=== PATIENT | female | born 1970 | race Caucasian/White ===

== ENCOUNTER 2018-01-22 18:38 | Emergency (ER) | payer SELFPAY ==
[2018-01-22 18:41] VITALS: BP 134/92; PULSE 84; RESP 17; TEMP 36.3; O2SAT 97; BMI 36.8
--- NOTE | 2018-01-22 19:19 | ED.VISSUMM ---
- ER Visit Summary Date of Service: 01/22/18 Chief Complaint: [Medication refill] History of Present Illness: The patient is a 47 F [presents to the emergency department requesting a refill on her blood pressure medication. Patient states that she ran out 2 days ago. Patient states that she normally goes to the [facility] clinic who normally calls her prescriptions in. Patient apparently has the follow-up third week of February with a new nurse practitioner there and they will not fill her prescriptions until she has had a actual visit with the new nurse practitioner. Patient went to the urgent care to get prescriptions filled however they would not fill them for her and she was referred to the emergency department. Patient otherwise has no complaints.] Physical Examination: [HEENT-PERRLA, EOMI. Cranial nerves II through XII grossly intact. TMs clear. Mucous membranes moist. No adenopathy. Cardiovascular-regular rate and rhythm without murmur or ectopy Lungs-clear to auscultation, chest wall stable without crepitus or subcu emphysema Abdomen-normoactive bowel sounds, soft, nontender, no rebound or rigidity, no peritoneal signs. Extremities-intact ?4, normal range of motion, normal pulses, atraumatic] Test Results: [None indicated] Emergency Department Course and Treatment: [None] Treatment Plan: [Patient will be given a prescription for chlorthalidone 25 mg daily and metoprolol 25 mg twice a day] Disposition: [Discharged home in stable condition] Impression: [Medication refill] This note was generated with [employer] dictation software. It may contain incorrect words, spelling, and punctuation that were not noted in review of the chart prior to signing ED Disposition - Plan for ED Patient: Chief Complaint: Med Refill Referrals: Gris Carl [Primary Care Provider] -
--- NOTE | 2018-01-22 19:21 | ED.DEP ---
ED Disposition - Plan for ED Patient: Chief Complaint: Med Refill Instructions: Med Refill Prescriptions: Chlorthalidone 25 mg PO DAILY #30 tab Metoprolol Tartrate 25 mg PO BID #60 tab Referrals: Gris Carl [Primary Care Provider] - Keep Niya appointment
[2018-01-22 19:29] VITALS: BP 127/87; PULSE 75; RESP 18
== END 2018-01-22 19:30 | disposition home or self-care (01) ==
PROVIDERS: Emergency Provider Emergency Medicine
DX: I10 Essential (primary) hypertension (principal); Z76.0 Encounter for issue of repeat prescription
CPT/HCPCS: 99282

== ENCOUNTER 2018-02-02 09:45 | Emergency (ER) | payer SELFPAY ==
[2018-02-02 09:46] VITALS: BP 152/94; PULSE 74; RESP 15; TEMP 36.4; O2SAT 97; BMI 36.6
--- NOTE | 2018-02-02 10:22 | ED.VISSUMM ---
- ER Visit Summary Date of Service: 02/02/18 Chief Complaint: Right toe injury History of Present Illness: The patient is a 47 F who stepped on a rounded portion of a baby carrier this morning and suffered a laceration to the bottom of her fourth toe. Tetanus shot is up-to-date. Patient has no paresthesias and is able to ambulate. Physical Examination: Vital signs are remarkable for blood pressure 152/94, otherwise unremarkable. Physical exam is significant for right lower extremity examination which reveals a one half center laceration to the base of the right fourth toe the plantar surface. Laceration is fairly deep. She has normal range of motion and cap refill distally. She has normal sensation. Test Results: [] Emergency Department Course and Treatment: Wound is anesthetized with 2 cc 1% lidocaine locally. Wound is irrigated and skin is closed with 2 4-0 Vicryl simple interrupted sutures. Dressing is applied. Treatment Plan: [] Disposition: Discharge Impression: Right fourth toe laceration status post suture This note was generated with [employer] dictation software. It may contain incorrect words, spelling, and punctuation that were not noted in review of the chart prior to signing ED Disposition - Plan for ED Patient: Chief Complaint: Laceration Referrals: Gris Carl [Primary Care Provider] -
--- NOTE | 2018-02-02 10:23 | ED.DEP ---
ED Disposition - Plan for ED Patient: Disposition: Home or Assisted Living Chief Complaint: Laceration Instructions: ED Laceration Foot Referrals: Gris Carl [Primary Care Provider] - As Needed
--- NOTE | 2018-02-02 10:29 | ED.RN ---
Physician disposed of lidocaine before rn could scan.
== END 2018-02-02 10:32 | disposition home or self-care (01) ==
PROVIDERS: Emergency Provider Emergency Medicine
DX: S91.114A Laceration without foreign body of right lesser toe(s) without damage to nail, initial encounter (principal); W45.8XXA Other foreign body or object entering through skin, initial encounter; Y93.9 Activity, unspecified; Y92.9 Unspecified place or not applicable; I11.0 Hypertensive heart disease with heart failure; I50.9 Heart failure, unspecified; Z79.899 Other long term (current) drug therapy
CPT/HCPCS: 12001; 99284

== ENCOUNTER 2018-05-14 18:12 | Emergency (ER) | payer SELFPAY ==
[2018-05-14 18:13] VITALS: BMI 36.3
[2018-05-14 18:15] VITALS: BP 134/94; PULSE 67; RESP 16; O2SAT 100
--- NOTE | 2018-05-14 18:15 | ED.RN ---
see downtime for triage.
--- NOTE | 2018-05-14 18:18 | ED.DEP ---
ED Disposition - Plan for ED Patient: Chief Complaint: Med Refill Diagnosis: Hypertension Instructions: Med Refill Prescriptions: Chlorthalidone 50 mg PO DAILY #30 tablet Metoprolol Tartrate 25 mg PO BID #60 tablet Referrals: Gris Carl [Primary Care Provider] -
--- NOTE | 2018-05-14 18:25 | ED.VISSUMM ---
- ER Visit Summary Date of Service: 05/14/18 Chief Complaint: Medication refill History of Present Illness: The patient is a 47 F presents requesting medication refill for her blood pressure medications. She takes metoprolol 25 mg twice daily, chlorthalidone 50 mg once a day. Patient has no complaints. She states she ran out of her medication yesterday. She she has an appointment with her primary care physician in 2 months. She states she is trying to move up this appointment. No other complaints. Physical Examination: Vitals are stable. Blood pressure 134/94. patient is afebrile. Alert no acute distress. HEENT exam is unremarkable. Neck is supple. Lungs are clear and equal bilaterally. Heart is regular rate and rhythm. Extremities are unremarkable. Skin is warm and dry. No focal neurologic deficit. Remainder of exam is unremarkable. Emergency Department Course and Treatment: Medications were refilled. She is advised to follow-up with her primary care physician. Advised return to ED if worsening complaints. Disposition: Discharged home Impression: Medication refill This note was generated with [employer] dictation software. It may contain incorrect words, spelling, and punctuation that were not noted in review of the chart prior to signing ED Disposition - Plan for ED Patient: Disposition: Home or Assisted Living Chief Complaint: Med Refill Diagnosis: Hypertension Instructions: Med Refill Prescriptions: Chlorthalidone 50 mg PO DAILY #30 tablet Metoprolol Tartrate 25 mg PO BID #60 tablet Referrals: Gris Carl [Primary Care Provider] -
== END 2018-05-14 18:25 | disposition home or self-care (01) ==
LOC: ED 18:22
PROVIDERS: Emergency Provider Emergency Medicine
DX: I10 Essential (primary) hypertension (principal)
CPT/HCPCS: 99282

== ENCOUNTER 2018-08-03 16:33 | Emergency (ER) | payer SELFPAY ==
[2018-08-03 16:35] VITALS: BP 159/95; PULSE 90; RESP 18; TEMP 36.5; O2SAT 95; BMI 35.2
--- NOTE | 2018-08-03 16:56 | ED.DCSUM_ITS ---
- ER Visit Summary Date of Service: 08/03/18 Chief Complaint: [Need for medication refill] History of Present Illness: The patient is a 48 F [presents the emergency department asking for refills on her medications. Patient ran out of her chlorthalidone as well as Lopressor yesterday. Patient states that she missed a appointment. Patient denies any chest pain or shortness of breath. Patient denies severe headaches. She otherwise has no complaints.] Physical Examination: [HEENT-PERRLA, EOMI. Cranial nerves II through XII grossly intact. TMs clear. Mucous membranes moist. No adenopathy. Cardiovascular-regular rate and rhythm without murmur or ectopy Lungs-clear to auscultation, chest wall stable without crepitus or subcu emphysema Abdomen-normoactive bowel sounds, soft, nontender, no rebound or rigidity, no peritoneal signs. Extremities-intact ?4, normal range of motion, normal pulses, atraumatic] Test Results: [None indicated] Emergency Department Course and Treatment: [None] Treatment Plan: [Patient will be given a prescription for chlorthalidone and Lopressor. Patient will be referred to primary care physician information technology administrator for no doc.] Disposition: [Discharged home in stable condition.] Impression: [Medication refill] This note was generated with [employer] dictation software. It may contain incorrect words, spelling, and punctuation that were not noted in review of the chart prior to signing ED Disposition - Plan for ED Patient: Chief Complaint: Med Refill Referrals: Gris Carl [Primary Care Provider] -
--- NOTE | 2018-08-03 16:56 | ED.DEP ---
ED Disposition - Plan for ED Patient: Chief Complaint: Med Refill Instructions: Med Refill Prescriptions: Chlorthalidone 50 mg PO DAILY #30 tab Metoprolol Tartrate [Lopressor] 25 mg PO DAILY #30 tab Referrals: Gris Carl [Primary Care Provider] -
== END 2018-08-03 17:08 | disposition home or self-care (01) ==
LOC: ED 17:04
PROVIDERS: Emergency Provider Emergency Medicine
DX: I11.0 Hypertensive heart disease with heart failure (principal); I50.9 Heart failure, unspecified
CPT/HCPCS: 99282

== ENCOUNTER 2018-09-20 13:58 | Emergency (ER) | payer SELFPAY ==
[2018-09-20 13:58] VITALS: BP 162/94; PULSE 107; RESP 16; TEMP 36.2; O2SAT 96; BMI 35.7
--- NOTE | 2018-09-20 14:06 | ED.VISSUMM ---
- ER Visit Summary Date of Service: 09/20/18 Chief Complaint: [] Needs her blood pressure medications refilled History of Present Illness: The patient is a 48 F [] patient has no complaints indicates she has hypertension since fall to the [place] [facility] she indicates she ran out of her medication she called in for an appointment they would not give her an appointment and would not refill her meds, she indicates she was told that she could simply go to the emergency department to get her meds refilled, she has no complaints, she has no head neck chest or abdominal pain she is in the emergent with 7 children. She assures me she is having no symptoms she indicates she has no health insurance just rely on the [facility] to manage her conditions Physical Examination: [] Blood pressure is 160/82 she is in no distress head neck chest unremarkable abdomen soft she is awake alert moving all 4 And again she has no complaints her neurologic exam is normal she is in room 7 children Test Results: [] Emergency Department Course and Treatment: [] I explained to the patient that the emergency department could not be the refill center for her antihypertensive meds as hypertension and the medications need to be followed by the outpatient providers for complications adjustments etc., she understood and said basically it was issue with [facility] been refusing to fill her meds and she understood the emergency department could not be used as a refill center of convenience, given the weekend we will provide her 1 week supply of her medications, I did talk to the [facility] confirmed those meds and provided 1 week of each of the meds Treatment Plan: [] He understands need to obtain further meds from her outpatient providers Disposition: [] Home stable Impression: [] Hypertension needs medication refill This note was generated with [employer] dictation software. It may contain incorrect words, spelling, and punctuation that were not noted in review of the chart prior to signing ED Disposition - Plan for ED Patient: Chief Complaint: Med Refill Referrals: Gris Carl [Primary Care Provider] -
[2018-09-20 14:07] VITALS: BP 120/87; PULSE 98; RESP 16; O2SAT 98
--- NOTE | 2018-09-20 14:12 | ED.DCSUM_ITS ---
- ER Visit Summary Date of Service: 09/20/18 Chief Complaint: [] Needs her blood pressure medications refilled History of Present Illness: The patient is a 48 F [] patient has no complaints indicates she has hypertension since fall to the [place] clinic she indicates she ran out of her medication she called in for an appointment they would not give her an appointment and would not refill her meds, she indicates she was told that she could simply go to the emergency department to get her meds refilled, she has no complaints, she has no head neck chest or abdominal pain she is in the emergent with 7 children. She assures me she is having no symptoms she indicates she has no health insurance just rely on the [facility] to manage her conditions Physical Examination: [] Blood pressure is 160/82 she is in no distress head neck chest unremarkable abdomen soft she is awake alert moving all 4 And again she has no complaints her neurologic exam is normal she is in room 7 children Test Results: [] Emergency Department Course and Treatment: [] I explained to the patient that the emergency department could not be the refill center for her antihypertensive meds as hypertension and the medications need to be followed by the outpatient providers for complications adjustments etc., she understood and said basically it was issue with [facility] been refusing to fill her meds and she understood the emergency department could not be used as a refill center of convenience, given the weekend we will provide her 1 week supply of her medications, I did talk to the [facility] confirmed those meds and provided 1 week of each of the meds Treatment Plan: [] He understands need to obtain further meds from her outpatient providers Disposition: [] Home stable Impression: [] Hypertension needs medication refill This note was generated with [employer] dictation software. It may contain incorrect words, spelling, and punctuation that were not noted in review of the chart prior to signing ED Disposition - Plan for ED Patient: Chief Complaint: Med Refill Referrals: Gris Carl [Primary Care Provider] -
--- NOTE | 2018-09-20 14:17 | ED.DEP ---
ED Disposition - Plan for ED Patient: Chief Complaint: Med Refill Instructions: Med Refill Referrals: Gris Carl [Primary Care Provider] -
== END 2018-09-20 14:24 | disposition home or self-care (01) ==
LOC: ED 14:18
PROVIDERS: Emergency Provider Emergency Medicine
DX: I10 Essential (primary) hypertension (principal)
CPT/HCPCS: 99282

== ENCOUNTER 2019-08-02 18:08 | Emergency (ER) | payer SELFPAY ==
[2019-08-02 18:09] VITALS: BP 159/106; PULSE 94; RESP 17; TEMP 36.6; O2SAT 97; BMI 36.3
--- NOTE | 2019-08-02 18:27 | ED.VISSUMM ---
- ER Visit Summary Date of Service: 08/02/19 Chief Complaint: Left ear pain History of Present Illness: The patient is a 49 F who presents with left ear pain that has been getting worse over the past week. Patient describes her pain as throbbing. Patient states her pain is worse when she lays down. Patient states the pain is localized to the left ear. Patient denies any fevers or chills. Patient states she recently went to the [facility] and is concerned over possible swimmer's ear. Physical Examination: Vital signs are stable except for slightly elevated blood pressure 159/106. Patient is afebrile. Patient is in no acute distress. Tympanic membranes are clear bilaterally. There is an effusion behind the left tympanic membrane. Oral mucosa is pink and moist. Neck is supple. Trachea is midline. There is no JVD or lymphadenopathy. Heart was regular rate and rhythm. Lungs are clear and equal bilaterally. Cranial nerves II through XII are intact. There are no focal motor or sensory deficits noted. Emergency Department Course and Treatment: Patient was advised that there is no infection at this time. Patient was given a prescription for Flonase nasal spray to help drain the effusion. Patient was instructed to follow-up with her primary care physician and in 2 weeks as scheduled. Patient was given a 2-week refill of her blood pressure medication. Patient understood and was agreeable with the plan. All questions were answered. Disposition: Discharge home Impression: 1. Left middle ear effusion 2. Hypertension This note was generated with [employer] dictation software. It may contain incorrect words, spelling, and punctuation that were not noted in review of the chart prior to signing ED Disposition - Plan for ED Patient: Disposition: Home or Assisted Living Diagnosis: Acute effusion of left ear, Hypertension Instructions: EARACHE w/o Infection (Adult) Prescriptions: Chlorthalidone 50 mg PO DAILY #14 tab Prescription Printed Fluticasone 0.05% [Flonase Nasal [place]] 1 spray NASAL BID #1 bottle Prescription Printed Metoprolol Tartrate [Lopressor (Beta Jasmina)] 25 mg PO BID #30 tab Prescription Printed Referrals: Gris Carl [Primary Care Provider] - Keep Niya appointment
[2019-08-02 18:40] VITALS: RESP 16
== END 2019-08-02 18:43 | disposition home or self-care (01) ==
LOC: ED 18:41
PROVIDERS: Emergency Provider Emergency Medicine
DX: H66.92 Otitis media, unspecified, left ear (principal); I10 Essential (primary) hypertension; Z79.899 Other long term (current) drug therapy
CPT/HCPCS: 99282

== ENCOUNTER 2019-11-28 17:48 | Emergency (ER) | payer SELFPAY ==
[2019-11-28 17:50] VITALS: BP 135/95; PULSE 89; RESP 16; TEMP 36.2; O2SAT 95; BMI 34.7
--- NOTE | 2019-11-28 18:23 | RAD_ITS ---
STUDY: X-RAY - RIGHT HAND, ATTENTION SECOND FINGER REASON FOR EXAM: Female, 49 years old. PT PRESENTS WITH RIGHT INDEX FINGER PAIN AND SWELLING. -- ? WOUND INFECTION TECHNIQUE: 3 view(s) of the finger were obtained. COMPARISON: None. FINDINGS: Normal metacarpal head. Normal metacarpophalangeal joint. Normal proximal phalanx. Normal middle phalanx. Normal distal phalanx. Normal proximal interphalangeal joint. Normal distal interphalangeal joint. Soft tissue swelling. RAD/Finger(s) Min 2 Views IMPRESSION: No osseous abnormality is evident. Electronically Signed: Jairon Alonso MD at 18:45 EST Tel , Service support ,
--- NOTE | 2019-11-28 18:25 | ED.VISSUMM ---
- ER Visit Summary Date of Service: 11/28/19 Chief Complaint: Right index finger wound History of Present Illness: The patient is a 49 F past medical history of hypertension. She currently does not have a primary care physician. She is on blood pressure medication. Dates may be a week or so ago she thought it might be a foreign body like a splinter or something on her right index finger. She was unable to get anything out so kind of felt like it might of came out on its own but in the last week she is developed swelling to the right index finger now believes to be infected. She denies any fever or chills. No prior surgery to her right hand. Physical Examination: Middle-aged female no acute distress vital signs are stable afebrile. H EENT exam unremarkable. Patient bilaterally. Heart regular rhythm no murmur. Abdomen soft nontender normal bowel sounds no peritoneal signs. Extremities moves all 4. Calves nontender no edema no cords. Specifically right index finger on the proximal phalanx medial portion radial side there is about a dime sized abscess. There is no lymphangitic streaking. There is no sausage digit. It is tender that area. There is no streaking. The forearm and upper arm are nontender there is no axillary lymphadenopathy. There is no swelling of the wrist elbow or shoulder. The finger is neurovascularly intact. Test Results: Right finger x-ray 2 views read by myself soft tissue swelling. No foreign body. Also read by the radiologist. Emergency Department Course and Treatment: Suture set up with lidocaine to drain the right index finger abscess. An x-ray will be obtained to help look for any possible foreign body such as a splinter metal shaving or what ever. Was locally anesthetized with lidocaine. Cleaned with Shur-Clens. I made a small 1 cm incision. Was able to express about 1 cc of pus and blood. Explored the wound broke up any loculations. I did not see or feel any foreign body nor was anything seen on the x-ray. Area be cleaned and dressed. She was started on Augmentin due to her other allergies. And given her first dose in the ER. Treatment Plan: Augmentin 875 twice daily for 7 days. 14 no refill. Tylenol Motrin for pain. Warm soaks. Follow-up. Return if worse. Disposition: Discharge Impression: Right index finger abscess Incision and drainage by ER This note was generated with Dragon dictation software. It may contain incorrect words, spelling, and punctuation that were not noted in review of the chart prior to signing ED Disposition - Plan for ED Patient: Disposition: Home or Assisted Living Instructions: ABSCESS, Incision and Drainage Prescriptions: Amox/Clavulanate Tablet [Augmentin Tablet] 875 mg PO Q12H #14 tab Prescription Printed Referrals: Coleman Enrique MD [STAFF PHYSICIAN] - 3-5 Days Additional Instructions: Warm soaks twice a day. Tylenol Motrin for pain. Follow-up in 3 to 5 days to ensure this is improving. Return to the ER if it looks a lot worse. Finish antibiotic Augmentin 1 pill twice a day with food on your stomach for 1 week.
--- NOTE | 2019-11-28 18:27 | ED.DEP ---
ED Disposition - Plan for ED Patient: Disposition: Home or Assisted Living Instructions: ABSCESS, Incision and Drainage Prescriptions: Amox/Clavulanate Tablet [Augmentin Tablet] 875 mg PO Q12H #14 tab Prescription Printed Referrals: Coleman Enrique MD [STAFF PHYSICIAN] - 3-5 Days Additional Instructions: Warm soaks twice a day. Tylenol Motrin for pain. Follow-up in 3 to 5 days to ensure this is improving. Return to the ER if it looks a lot worse. Finish antibiotic Augmentin 1 pill twice a day with food on your stomach for 1 week.
[2019-11-28] MEDS: Amox/Clavulanate 875 MG Tablet PO (20:05)
== END 2019-11-28 20:09 | disposition home or self-care (01) ==
LOC: ED 18:45
PROVIDERS: Emergency Provider Emergency Medicine
DX: L02.511 Cutaneous abscess of right hand (principal); I10 Essential (primary) hypertension; Z79.899 Other long term (current) drug therapy
CPT/HCPCS: 26010; 73140; 99283

== ENCOUNTER → 2020-08-17 16:00 | Outpatient (CLI) | payer SELFPAY ==
[2020-08-17 14:53] VITALS: BMI 39.6
[2020-08-17 16:53] LABS: Absolute Neutrophil Count 3.8 X10^3/uL (2.0-7.7); Basophil# 0.05 X10^3/uL; Basophil% 0.8 % (0-1); Eosinophil# 0.29 X10^3/uL; Eosinophils% 4.4 % (0-5); Hematocrit 43.2 % (37-47); Hemoglobin 14.6 g/dL (12.0-15.0); Lymphocyte % 30.3 % (19-41); Mean Corp Hgb Conc 33.8 g/dL (32-36); Mean Corpuscular Hgb 28.7 pg (27.0-32.0); Mean Corpuscular Volume 84.9 fL (81-99); Mean Platelet Vol. 10.1 fl (6.2-12.0); Monocyte# 0.48 X10^3/uL; Monocyte% 7.3 % (0-10); NRBC Flagged by Analyzer 0 % (0-5); Neutrophil # 3.76 X10^3/uL (2.7-7.7); Neutrophil % 56.9 % (47-70); Platelet Count 272 K/mm3 (150-450); RBC Distribution Width CV 12.5 % (11.6-14.6); RBC Distribution Width SD 38.8 fl (35.1-43.9); Red Blood Count 5.09 M/mm3 (4.2-5.4); White Blood Count 6.6 K/mm3 (4.4-11.0)
[2020-08-17 17:09] LABS: Hemoglobin A1c 6.2 % (3.8-5.6)
[2020-08-17 17:23] LABS: Cholesterol 229 mg/dL (200); High Density Lipoprotein 47 mg/dL; Thyroid Stim Hormone (TSH) 0.75 uIU/mL (0.358-3.74); Triglycerides 175 mg/dL; Very Low Density Lipoprotein 35 mg/dL (5-40)
[2020-08-18 09:39] LABS: ALB/GLOB Ratio 0.9 RATIO (0.9-2.4); AST(SGOT) 22 U/L (15-37); Alanine Aminotransfer ALT/SGPT 29 U/L (13-56); Albumin, Serum 3.7 g/dL (3.2-5.0); Alkaline Phosphatase 91 U/L (45-117); Anion Gap 8 (5-15); BUN 20 mg/dL (7-18); BUN/Creat Ratio 20.7 RATIO (10-20); Calcium,Total 9.4 mg/dL (8.5-10.1); Chloride 101 mmol/L (98-107); Creatinine, Serum 0.97 mg/dL (0.55-1.02); EST Glomerular Filtration Rate 65 mL/min (>60); Est Glom Filt Rate - Afr Amer 78 mL/min (>60); Globulin 4.3 g/dL (2.2-4.2); Glucose 104 mg/dL (74-106); Sodium Level 138 mmol/L (136-145)
== END ==
LOC: BIMLAB 16:01
PROVIDERS: PCP Internal Medicine; Referring Provider Internal Medicine; Visit Provider Internal Medicine
DX: I10 Essential (primary) hypertension (principal); J45.909 Unspecified asthma, uncomplicated; E11.9 Type 2 diabetes mellitus without complications
CPT/HCPCS: 36415; 80053; 80061; 83036; 84443; 85025

== ENCOUNTER 2022-01-25 11:11 | Outpatient (CLI) | payer SELFPAY ==
[2022-01-25 12:11] LABS: Absolute Lymphocyte Count 2.07 X10^3/uL (0.83-4.51); Absolute Neutrophil Count 3.4 X10^3/uL (2.0-7.7); Basophil# 0.05 X10^3/uL; Basophil% 0.7 % (0-1); Eosinophil# 0.64 X10^3/uL; Eosinophils% 9.5 % (0-5); Hematocrit 39.8 % (37-47); Hemoglobin 13.1 g/dL (12.0-15.0); Lymphocyte # 2.07 X10^3/ul (0.83-4.51); Lymphocyte % 30.6 % (19-41); Mean Corp Hgb Conc 32.9 g/dL (32-36); Mean Corpuscular Hgb 28.7 pg (27.0-32.0); Mean Corpuscular Volume 87.3 fL (81-99); Mean Platelet Vol. 9.9 fl (6.2-12.0); Monocyte# 0.54 X10^3/uL; NRBC Flagged by Analyzer 0 % (0-5); Neutrophil # 3.44 X10^3/uL (2.7-7.7); Neutrophil % 50.8 % (47-70); Platelet Count 236 K/mm3 (150-450); RBC Distribution Width CV 13.5 % (11.6-14.6); Red Blood Count 4.56 M/mm3 (4.2-5.4); White Blood Count 6.8 K/mm3 (4.4-11.0)
[2022-01-25 12:36] LABS: Hemoglobin A1c 6.4 % (3.8-5.6)
[2022-01-25 12:39] LABS: ALB/GLOB Ratio 0.8 RATIO (0.9-2.4); AST(SGOT) 16 U/L (15-37); Alanine Aminotransfer ALT/SGPT 27 U/L (13-56); Albumin, Serum 3.2 g/dL (3.2-5.0); Alkaline Phosphatase 100 U/L (45-117); Anion Gap 4 (5-15); BUN 18 mg/dL (7-18); BUN/Creat Ratio 22.9 RATIO (10-20); Calcium,Total 8.8 mg/dL (8.5-10.1); Chloride 107 mmol/L (98-107); Cholesterol 183 mg/dL (200); Creatinine, Serum 0.78 mg/dL (0.55-1.02); EST Glomerular Filtration Rate 82 mL/min (>60); Est Glom Filt Rate - Afr Amer 99 mL/min (>60); Globulin 3.8 g/dL (2.2-4.2); Glucose 121 mg/dL (74-106); High Density Lipoprotein 41 mg/dL; Potassium 3.9 mmol/L (3.5-5.1); Sodium Level 139 mmol/L (136-145); Thyroid Stim Hormone (TSH) 1.38 uIU/mL (0.358-3.74); Triglycerides 146 mg/dL; Very Low Density Lipoprotein 29 mg/dL (5-40)
[2022-01-25 12:53] LABS: Vitamin D,25 Hydroxy 21.3 ng/mL
== END 2022-01-25 23:59 | disposition home or self-care (01) ==
LOC: BIMLAB 11:11
PROVIDERS: PCP Internal Medicine; Referring Provider Internal Medicine; Visit Provider Internal Medicine
DX: I11.0 Hypertensive heart disease with heart failure (principal); I50.9 Heart failure, unspecified; F17.200 Nicotine dependence, unspecified, uncomplicated
CPT/HCPCS: 36415; 80053; 80061; 82306; 83036; 84443; 85025

== ENCOUNTER → 2023-02-06 | Outpatient (CLI) | payer MEDICAID, SELFPAY ==
[2023-02-06 11:23] LABS: Absolute Lymphocyte Count 1.96 X10^3/uL (0.83-4.51); Absolute Neutrophil Count 2.3 X10^3/uL (2.0-7.7); Basophil# 0.04 X10^3/uL; Basophil% 0.8 % (0-1); Eosinophil# 0.37 X10^3/uL; Eosinophils% 7.3 % (0-5); Hematocrit 41.1 % (37-47); Hemoglobin 13.8 g/dL (12.0-15.0); Lymphocyte # 1.96 X10^3/ul (0.83-4.51); Lymphocyte % 38.9 % (19-41); Mean Corp Hgb Conc 33.6 g/dL (32-36); Mean Corpuscular Hgb 28.8 pg (27.0-32.0); Mean Corpuscular Volume 85.8 fL (81-99); Mean Platelet Vol. 9.6 fl (6.2-12.0); Monocyte# 0.39 X10^3/uL; Monocyte% 7.7 % (0-10); NRBC Flagged by Analyzer 0 % (0-5); Neutrophil # 2.28 X10^3/uL (2.7-7.7); Neutrophil % 45.3 % (47-70); Platelet Count 233 K/mm3 (150-450); RBC Distribution Width SD 40.1 fl (35.1-43.9); Red Blood Count 4.79 M/mm3 (4.2-5.4)
[2023-02-06 11:51] LABS: Vitamin D,25 Hydroxy 28.4 ng/mL
[2023-02-06 11:57] LABS: Hemoglobin A1c 6.7 % (3.8-5.6)
[2023-02-06 12:01] LABS: ALB/GLOB Ratio 0.8 RATIO (0.9-2.4); AST(SGOT) 22 U/L (15-37); Alanine Aminotransfer ALT/SGPT 35 U/L (13-56); Albumin, Serum 3.2 g/dL (3.2-5.0); Alkaline Phosphatase 119 U/L (45-117); Anion Gap 6 (5-15); BUN 19 mg/dL (7-18); Calcium,Total 9.4 mg/dL (8.5-10.1); Chloride 102 mmol/L (98-107); Cholesterol 183 mg/dL (200); Creatinine, Serum 0.91 mg/dL (0.55-1.02); EST Glomerular Filtration Rate 69 mL/min (>60); Est Glom Filt Rate - Afr Amer 83 mL/min (>60); Globulin 4.1 g/dL (2.2-4.2); Glucose 148 mg/dL (74-106); High Density Lipoprotein 33 mg/dL; Potassium 3.4 mmol/L (3.5-5.1); Protein, Total 7.3 g/dL (6.4-8.2); Sodium Level 136 mmol/L (136-145); Thyroid Stim Hormone (TSH) 1.27 uIU/mL (0.358-3.74); Triglycerides 256 mg/dL; Very Low Density Lipoprotein 51 mg/dL (5-40)
== END | disposition home or self-care (01) ==
PROVIDERS: PCP Internal Medicine; Referring Provider Internal Medicine; Visit Provider Internal Medicine
DX: I10 Essential (primary) hypertension (principal); E66.9 Obesity, unspecified; F17.200 Nicotine dependence, unspecified, uncomplicated; E55.9 Vitamin D deficiency, unspecified; R73.9 Hyperglycemia, unspecified
CPT/HCPCS: 36415; 80053; 80061; 82306; 83036; 84443; 85025

== ENCOUNTER → 2025-05-26 | Outpatient (CLI) | payer MEDICAID, SELFPAY ==
[2025-05-26 10:09] LABS: Hematocrit 43.8 % (37-47); Hemoglobin 15.1 g/dL (12.0-15.0); Immature Granulocytes Count 0.020 X10^3/uL (0.0-0.0); Mean Corp Hgb Conc 34.5 g/dL (32-36); Mean Corpuscular Volume 84.9 fL (81-99); Mean Platelet Vol. 9.9 fl (6.2-12.0); NRBC Flagged by Analyzer 0 % (0-5); Platelet Count 285 K/mm3 (150-450); RBC Distribution Width CV 12.8 % (11.6-14.6); RBC Distribution Width SD 39.6 fl (35.1-43.9); Red Blood Count 5.16 M/mm3 (4.2-5.4); White Blood Count 7.0 K/mm3 (4.4-11.0)
[2025-05-26 11:32] LABS: AST(SGOT) 20 U/L (<=31); Alanine Aminotransfer ALT/SGPT 11 U/L (<=34); Albumin, Serum 4.2 g/dL (3.5-5.0); Alkaline Phosphatase 100 U/L (35-104); Anion Gap 12 (5-15); BUN 25 mg/dL (4-19); BUN/Creat Ratio 28.6 RATIO (10-20); Calcium,Total 9.9 mg/dL (7.6-11.0); Carbon Dioxide 26.1 mmol/L (21.0-32.0); Chloride 101 mmol/L (98-108); Cholesterol 225 mg/dL (<=200); Globulin 3.7 g/dL (2.2-4.2); Glucose 90 mg/dL (70-99); Low Density Lipoprotein Calc. 149 mg/dL; Magnesium 2.1 mg/dL (1.5-2.2); Potassium 4.0 mmol/L (3.3-5.1); Triglycerides 160 mg/dL; Very Low Density Lipoprotein 32 mg/dL (5-40); Vitamin B12 679 pg/mL (180-914); Vitamin D,25 Hydroxy 30.4 ng/mL (30-100); cholesterol:hdl ratio screen 5.15
== END | disposition home or self-care (01) ==
PROVIDERS: PCP Internal Medicine; Referring Provider Internal Medicine; Visit Provider Internal Medicine
DX: E11.65 Type 2 diabetes mellitus with hyperglycemia (principal); E66.9 Obesity, unspecified; I10 Essential (primary) hypertension; Z13.220 Encounter for screening for lipoid disorders; E53.8 Deficiency of other specified B group vitamins; E55.9 Vitamin D deficiency, unspecified
CPT/HCPCS: 36415; 80053; 80061; 82306; 82607; 83036; 83525; 83735; 84443; 85025

== ENCOUNTER 2025-08-23 13:58 | Emergency (ER) | payer MEDICAID, SELFPAY ==
[2025-08-23 13:59] VITALS: BP 148/93; PULSE 88; RESP 18; TEMP 36.4; O2SAT 99
[2025-08-23 16:10] VITALS: BP 148/93; PULSE 88; RESP 18; TEMP 36.4; O2SAT 99
== END 2025-08-23 16:11 | disposition home or self-care (01) ==
PROVIDERS: Emergency Provider Surgery; PCP Internal Medicine; Visit Provider Surgery
DX: S70.01XA Contusion of right hip, initial encounter (principal); E11.9 Type 2 diabetes mellitus without complications; S80.11XA Contusion of right lower leg, initial encounter; V03.00XA Pedestrian on foot injured in collision with car, pick-up truck or van in nontraffic accident, initial encounter; I10 Essential (primary) hypertension; Z79.85 Long-term (current) use of injectable non-insulin antidiabetic drugs; Z79.899 Other long term (current) drug therapy
CPT/HCPCS: 73502; 73590; 99282